=== PATIENT | male | born 1955 | race Caucasian/White ===

== ENCOUNTER 2017-07-23 10:17 | Day surgery (SDC) | payer OTHER ==
[~2017-07-23 10:17] MED LIST: Lactated Ringers 1,000 ML IV SCH
[2017-07-23] MEDS ORDERED: Propofol 200 MG/20 ML SDV ONE (11:30)
[2017-07-23] MEDS ORDERED: fentaNYL 100 MCG/2 ML SDV ONE (11:30)
--- NOTE | 2017-07-24 07:55 | OR ---
PREOPERATIVE DIAGNOSIS: Change in bowel pattern. POSTOPERATIVE DIAGNOSIS: Normal colonoscopic exam. PROCEDURE PROPOSED AND PROCEDURE DONE: Total flexible colonoscopy. INDICATION: A 61-year-old gentleman referred from the [facility] for colonoscopy. His last one was 5 years ago. He has had some change in his bowel pattern with increased constipation. TECHNIQUE: He was brought to the endoscopy suite and placed in the left lateral decubitus position. The patient was sedated with propofol per SYS DIR. The flexible video colonoscope was then passed transanally and, under visualization, advanced to the cecum. Examination revealed a normal ascending, transverse, descending, sigmoid, and rectal colons. There was no evidence of any diverticulosis, polyps, colitis, or other abnormalities. The scope was then withdrawn. The patient tolerated the procedure well. FINAL IMPRESSION: Essentially normal colonoscopic exam. PLAN: The patient is reassured. I felt he could likely wait 10 years before he needs a repeat colonoscopy. SCM: 07/23/2017 12:56:05 MODL: 07/23/2017 13:41:50 /[id number]
== END 2017-07-23 13:45 | disposition home or self-care (01) ==
LOC: VM.SDS 10:17
PROVIDERS: ATTEND Surgery
DX: R19.4 Change in bowel habit (principal); I10 Essential (primary) hypertension; J44.9 Chronic obstructive pulmonary disease, unspecified; E55.9 Vitamin D deficiency, unspecified; E11.9 Type 2 diabetes mellitus without complications; K21.9 Gastro-esophageal reflux disease without esophagitis; F41.9 Anxiety disorder, unspecified; F32.9 Major depressive disorder, single episode, unspecified; G89.29 Other chronic pain; M54.5 Low back pain; Z79.84 Long term (current) use of oral hypoglycemic drugs; Z79.899 Other long term (current) drug therapy; F17.200 Nicotine dependence, unspecified, uncomplicated
CPT/HCPCS: 00811; 45378; J2704; J3010; J7120; 82962